=== PATIENT | female | born 1995 | race Two or more races ===

== ENCOUNTER → 2024-08-18 | Outpatient (CLI) | payer OTHER, SELFPAY ==
--- NOTE | 2024-08-18 16:11 | XR_ITS ---
Examination: Wrist, left 3 views Technique: Wrist AP, oblique, lateral 3 views Date and time of exam: 14 hours Indications: Lifting injury to the wrist today, wrist pain. Findings: No acute fracture No dislocation No foreign body Impression: No acute fracture
== END | disposition home or self-care (01) ==
PROVIDERS: PCP Family Medicine; Referring Provider Family Medicine; Visit Provider Family Medicine
DX: S63.92XA Sprain of unspecified part of left wrist and hand, initial encounter (principal); X58.XXXA Exposure to other specified factors, initial encounter
CPT/HCPCS: 73110

== ENCOUNTER 2025-04-11 08:54 | Outpatient (AMB) | payer MEDICAID, SELFPAY ==
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
[2025-04-11 09:06] VITALS: BP 119/75; PULSE 96; RESP 17; TEMP 36.5; O2SAT 95; BMI 34.7
== END 2025-04-11 09:24 | disposition home or self-care (01) ==
LOC: HODSOBC 08:54
PROVIDERS: Supervising Provider Advanced Practice Midwife; Visit Provider Advanced Practice Midwife
DX: Z34.83 Encounter for supervision of other normal pregnancy, third trimester (principal); Z3A.33 33 weeks gestation of pregnancy
CPT/HCPCS: 99214; G0463

== ENCOUNTER 2025-04-25 15:17 | Outpatient (AMB) | payer MEDICAID, SELFPAY ==
[2025-04-25 15:26] VITALS: BP 118/78; PULSE 90; RESP 18; TEMP 36.6; O2SAT 98; BMI 29.1
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
== END 2025-04-25 15:41 | disposition home or self-care (01) ==
LOC: HODSOBC 15:17
PROVIDERS: Supervising Provider Advanced Practice Midwife; Visit Provider Advanced Practice Midwife
DX: Z34.83 Encounter for supervision of other normal pregnancy, third trimester (principal); Z36.85 Encounter for antenatal screening for Streptococcus B; Z3A.35 35 weeks gestation of pregnancy
CPT/HCPCS: 99214; G0463

== ENCOUNTER 2025-05-03 09:54 | Outpatient (AMB) | payer MEDICAID, SELFPAY ==
[2025-05-03 10:02] VITALS: BP 115/77; PULSE 100; RESP 17; TEMP 36.8; O2SAT 96; BMI 35.7
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
== END 2025-05-03 10:13 | disposition home or self-care (01) ==
LOC: HODSOBC 09:54
PROVIDERS: Supervising Provider Advanced Practice Midwife; Visit Provider Advanced Practice Midwife
DX: Z34.83 Encounter for supervision of other normal pregnancy, third trimester (principal); Z3A.36 36 weeks gestation of pregnancy
CPT/HCPCS: 99213; G0463

== ENCOUNTER 2025-05-13 09:24 | Outpatient (AMB) | payer MEDICAID, SELFPAY ==
[2025-05-13 09:42] VITALS: BP 124/72; PULSE 93; RESP 18; TEMP 36.6; O2SAT 96; BMI 35.4
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
== END 2025-05-13 10:03 | disposition home or self-care (01) ==
LOC: HODSOBC 09:24
PROVIDERS: Supervising Provider Advanced Practice Midwife; Visit Provider Advanced Practice Midwife
DX: Z34.83 Encounter for supervision of other normal pregnancy, third trimester (principal); Z3A.37 37 weeks gestation of pregnancy
CPT/HCPCS: 99214; G0463

== ENCOUNTER 2025-05-19 10:30 | Outpatient (AMB) | payer MEDICAID, SELFPAY ==
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
[2025-05-19 10:46] VITALS: BP 121/74; PULSE 103; RESP 16; TEMP 36.2; O2SAT 98
== END 2025-05-19 11:21 | disposition home or self-care (01) ==
LOC: HODSOBC 10:30
PROVIDERS: Supervising Provider Advanced Practice Midwife; Visit Provider Advanced Practice Midwife
DX: Z34.83 Encounter for supervision of other normal pregnancy, third trimester (principal); Z3A.38 38 weeks gestation of pregnancy
CPT/HCPCS: 99213; G0463

== ENCOUNTER 2025-05-26 13:27 | Outpatient (AMB) | payer MEDICAID, SELFPAY ==
[2025-05-26 13:41] VITALS: BP 115/75; PULSE 97; RESP 17; TEMP 36.7; O2SAT 97; BMI 36.1
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
== END 2025-05-26 14:22 | disposition home or self-care (01) ==
LOC: HODSOBC 13:27
PROVIDERS: Supervising Provider Advanced Practice Midwife; Visit Provider Advanced Practice Midwife
DX: Z34.83 Encounter for supervision of other normal pregnancy, third trimester (principal); Z3A.39 39 weeks gestation of pregnancy
CPT/HCPCS: 99213; G0463